=== PATIENT | male | born 2000 | race Caucasian/White ===

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

== ENCOUNTER 2021-04-19 23:17 | Emergency (ER) | payer BC ==
[~2021-04-19] VITALS: Ht 172.7 cm; Wt 70.0 kg
[2021-04-20] MEDS ORDERED: FAMOTIDINE 20MG/2ML IV (PEPCID) IVP ONE (00:15)
[2021-04-20] MEDS ORDERED: LACTATED RINGERS 1,000 ML IV ONE (00:15)
[2021-04-20] MEDS ORDERED: ONDANSETRON 4 MG/2 ML (SDV) Z0FRAN IVP ONE (00:15)
[2021-04-20] MEDS ORDERED: KETOROLAC 30 MG/ML VIAL IVP ONE (00:15)
[2021-04-20 00:40] LABS: BASOPHILS % (AUTO) 1 % (0-10); EOSINOPHILS # (AUTO) 0.1 10^3/uL (0.0-0.3); EOSINOPHILS % (AUTO) 1 % (0-10); HEMATOCRIT 37 % (40-54); HEMOGLOBIN 12.4 g/dL (13.3-17.7); LYMPHOCYTES # (AUTO) 0.8 10^3/uL (1.0-4.0); LYMPHOCYTES % (AUTO) 23 % (12-44); MEAN CORPUSCULAR HEMOGLOBIN 29 pg (25-34); MEAN CORPUSCULAR HGB CONC 33 g/dL (32-36); MEAN CORPUSCULAR VOLUME 86 fL (80-99); MEAN PLATELET VOLUME 10.8 fL (9.0-12.2); MONOCYTES # (AUTO) 0.5 10^3/uL (0.0-1.0); MONOCYTES % (AUTO) 13 % (0-12); NEUTROPHILS # (AUTO) 2.1 10^3/uL (1.8-7.8); NEUTROPHILS % (AUTO) 62 % (42-75); PLATELET COUNT 163 10^3/uL (130-400); WHITE BLOOD COUNT 3.5 10^3/uL (4.3-11.0)
--- NOTE | 2021-04-20 00:44 | ED General ---
General Chief Complaint: Cough/Cold/Flu Symptoms Stated Complaint: SHORT OF BREATH, COUGH, VOMITING Nursing Triage Note: PT TO RM 10 W C/O SOA, COUGH, N/V/D, SORE THROAT, [place], FEVER, BODY ACHES, AND CHEST TIGHTNESS. PT REPORTS HE JUST RETURNED FROM [place] 2 DAYS AGO WHERE HE WENT TO [employer]. PT STATES "THE [facility]AS[facility] C[facility] IS BECAUSE MY GIRLFRIEND NOTICED THAT I STRAIGHT UP STOPPED BREATHING WHILE LAYING IN BED ABOUT 25 MINUTES AGO." PT A&OX4. Source of Information: Patient Exam Limitations: No Limitations History of Present Illness Date Seen by Provider: Apr 19, 2021 Time Seen by Provider: 23:21 Allergies and Home Medications Allergies Coded Allergies: No Known Drug Allergies (Unverified , 04/20/21) Patient Home Medication List Home Medication List Reviewed: Yes Ondansetron (Ondansetron Odt) 4 Mg Tab.rapdis, 4 MG PO Q4H PRN for NAUSEA/VOMITING Prescribed by: RAUL ANGLIN on 04/20/21 0126 Review of Systems Review of Systems Constitutional: malaise, weakness EENTM: throat pain Respiratory: see HPI, cough, short of breath Cardiovascular: see HPI Gastrointestinal: see HPI Genitourinary: no symptoms reported Musculoskeletal: see HPI, muscle pain Skin: no symptoms reported Psychiatric/Neurological: No Symptoms Reported Hematologic/Lymphatic: No Symptoms Reported Immunological/Allergic: no symptoms reported Past Eyscyth-Umtqrz-Hjckqb Hx Patient Social History Tobacco Use?: No Use of E-Cig and/or Vaping dev: Yes E-Cig or Vaping type used: Nicotine, Marijuana Use of E-Cig and/or Vaping Alberto: Current Everyday User Substance use?: Yes Substance type: Marijuana, Other Additional substance use comme: THC & DELTA 8 USE Alcohol Use?: Yes Alcohol Frequency: Rarely Immunizations Up To Date Influenza Vaccine Up-to-Date: No; Not Current First/Initial COVID19 Vaccinat: FEBRUARY 2021 Second COVID19 Vaccination Willie: MARCH 2021 COVID19 Vaccine Tablet Repair: LATISHA Past Medical History Surgeries: Yes Adenoidectomy, Appendectomy Respiratory: No Cardiac: No Neurological: No Genitourinary: No Gastrointestinal: No Endocrine: No HEENT: No Cancer: No Psychosocial: Yes Depression Integumentary: No Physical Exam Vital Signs Vital Signs - First Documented 04/19/21 23:28 Temp 37.8 Pulse 84 Resp 26 B/P (MAP) 139/75 (96) Pulse Ox 99 O2 Delivery Room Air Capillary Refill : Less Than 3 Seconds Height, Weight, BMI Height: '" Weight: lbs. oz. kg; 23.00 BMI Method: Progress/Results/Core Measures Suspected Sepsis SIRS Temperature: Pulse: 84 Respiratory Rate: 26 Laboratory Tests 04/20/21 00:30: White Blood Count 3.5L Blood Pressure 139 /75 Mean: 96 Laboratory Tests 04/20/21 00:30: Creatinine 0.90, Platelet Count 163, Total Bilirubin 0.2 Results/Orders Lab Results Laboratory Tests Test 04/19/21 23:32 04/20/21 00:30 Range/Units Influenza Type A (RT-PCR) Detected H Not Detecte Influenza Type B (RT-PCR) Not Detected Not Detecte SARS-CoV-2 RNA (RT-PCR) Not Detected Not Detecte White Blood Count 3.5 L 4.3-11.0 10^3/uL Red Blood Count 4.31 4.30-5.52 10^6/uL Hemoglobin 12.4 L 13.3-17.7 g/dL Hematocrit 37 L 40-54 % Mean Corpuscular Volume 86 80-99 fL Mean Corpuscular Hemoglobin 29 25-34 pg Mean Corpuscular Hemoglobin Concent 33 32-36 g/dL Red Cell Distribution Width 12.3 10.0-14.5 % Platelet Count 163 130-400 10^3/uL Mean Platelet Volume 10.8 9.0-12.2 fL Immature Granulocyte % (Auto) 0 % Neutrophils (%) (Auto) 62 42-75 % Lymphocytes (%) (Auto) 23 12-44 % Monocytes (%) (Auto) 13 H 0-12 % Eosinophils (%) (Auto) 1 0-10 % Basophils (%) (Auto) 1 0-10 % Neutrophils # (Auto) 2.1 1.8-7.8 10^3/uL Lymphocytes # (Auto) 0.8 L 1.0-4.0 10^3/uL Monocytes # (Auto) 0.5 0.0-1.0 10^3/uL Eosinophils # (Auto) 0.1 0.0-0.3 10^3/uL Basophils # (Auto) 0.0 0.0-0.1 10^3/uL Immature Granulocyte # (Auto) 0.0 0.0-0.1 10^3/uL Sodium Level 139 135-145 MMOL/L Potassium Level 3.5 L 3.6-5.0 MMOL/L Chloride Level 106 98-107 MMOL/L Carbon Dioxide Level 22 21-32 MMOL/L Anion Gap 11 5-14 MMOL/L Blood Urea Nitrogen 10 7-18 MG/DL Creatinine 0.90 0.60-1.30 MG/DL Estimat Glomerular Filtration Rate 108 BUN/Creatinine Ratio 11 Glucose Level 100 70-105 MG/DL Calcium Level 8.9 8.5-10.1 MG/DL Corrected Calcium 8.9 8.5-10.1 MG/DL Magnesium Level 1.8 1.6-2.4 MG/DL Total Bilirubin 0.2 0.1-1.0 MG/DL Aspartate Amino Transf (AST/SGOT) 26 5-34 U/L Alanine Aminotransferase (ALT/SGPT) 29 0-55 U/L Alkaline Phosphatase 55 40-136 U/L Total Protein 6.9 6.4-8.2 GM/DL Albumin 4.0 3.2-4.5 GM/DL Lipase 53 8-78 U/L My Orders Orders - RAUL KENNEDY MD Covid 19 Inhouse Test (04/19/21 23:21) Influenza A And B By Pcr (04/19/21 23:21) Cbc With Automated Diff (04/20/21 00:02) Comprehensive Metabolic Panel (04/20/21 00:02) Lipase (04/20/21 00:02) Magnesium (04/20/21 00:02) Ed Iv/Invasive Line Start (04/20/21 00:02) Lactated Ringers (Lr 1000 Ml Iv Solution (04/20/21 00:15) Ondansetron Injection (Zofran Injectio (04/20/21 00:15) Famotidine Injection (Pepcid Injection) (04/20/21 00:15) Chest 1 View, Ap/Pa Only (04/20/21 00:02) Ketorolac Injection (Toradol Injection) (04/20/21 00:15) Ekg Tracing (04/20/21 00:44) Monitor-Rhythm Ecg Trace Only (12/26/21 00:44) Rx-Oseltamivir Caps (Rx-Tamiflu Caps) (04/20/21 01:12) Medications Given in ED Current Medications Medications Dose Ordered Sig/Augustus Route Start Time Stop Time Status Last Admin Dose Admin Famotidine 20 mg ONCE ONCE IVP 04/20/21 00:15 04/20/21 00:16 DC 04/20/21 00:24 20 MG Ketorolac Tromethamine 15 mg ONCE ONCE IVP 04/20/21 00:15 04/20/21 00:16 DC 04/20/21 00:24 15 MG Lactated Ringer's 1,000 ml @ 0 mls/hr Q0M ONCE IV 04/20/21 00:15 04/20/21 00:16 DC 04/20/21 00:23 0 MLS/HR Ondansetron HCl 8 mg ONCE ONCE IVP 04/20/21 00:15 04/20/21 00:16 DC 04/20/21 00:23 8 MG Vital Signs/I&O 04/19/21 04/20/21 23:28 01:27 Temp 37.8 36.8 Pulse 84 80 Resp 26 13 B/P (MAP) 139/75 (96) 121/63 Pulse Ox 99 98 O2 Delivery Room Air Room Air Capillary Refill : Less Than 3 Seconds Blood Pressure Mean: 96 ECG Initial ECG Impression Date: Apr 19, 2021 Initial ECG Impression Time: 01:13 Initial ECG Rate: 89 Initial ECG Rhythm: Normal Sinus Comment Sinus rhythm with no ischemic ST elevation or depression. Subtle ST changes are likely demonstrating early repolarization juvenile pattern. No abnormal intervals or axis deviation. Departure Impression Primary Impression: Influenza A Additional Impression: Nausea vomiting and diarrhea Disposition: 01 HOME, SELF-CARE Condition: Improved Departure-Patient Inst. Decision time for Depature: 01:23 Referrals: NO,LOCAL PHYSICIAN (PCP/Family) Primary Care Physician Patient Instructions: Flu Add. Discharge Instructions: Drink plenty of clear liquids to stay well-hydrated. Use Zofran as prescribed for nausea and vomiting. Complete the entire 10 doses of Tamiflu. Do not stop early even if you are feeling better. You may use antacid medication such as Pepcid (famotidine), omeprazole, Tums, etc. for your abdominal discomfort. You may use Tylenol (acetaminophen) up to 1000 mg every 6 hours and/or ibuprofen up to 600 mg every 6 hours as needed for pain or fever. Do not return to work, school, or other activities until you are free of fever and significant symptoms for at least 48 hours without taking medications. Work toward stopping vaping and other inhaled substances as soon as possible. Seek assistance from your primary care provider if you are having difficulty quitting. The episode described in the ER sounds like it may have been a brief apneic episode. Please talk with your primary care provider about possibly being tested for sleep apnea. Call with questions or concerns. Return to the ER if you have worsening symptoms despite following the above measures. All discharge instructions reviewed with patient and/or family. Voiced understanding. Scripts Ondansetron (Ondansetron Odt) 4 Mg Tab.rapdis 4 MG PO Q4H PRN for NAUSEA/VOMITING, #10 TAB Prov: RAUL KENNEDY MD 04/20/21 RAUL KENNEDY MD Apr 20, 2021 00:44
[2021-04-20 00:46] LABS: POTASSIUM 3.5 MMOL/L (3.6-5.0)
[2021-04-20 00:47] LABS: CALCIUM 8.9 MG/DL (8.5-10.1)
[2021-04-20 00:48] LABS: TOTAL PROTEIN 6.9 GM/DL (6.4-8.2)
[2021-04-20 00:50] LABS: BILIRUBIN,TOTAL 0.2 MG/DL (0.1-1.0)
[2021-04-20 00:52] LABS: CREATININE SERUM 0.9 MG/DL (0.60-1.30)
[2021-04-20 00:55] LABS: MAGNESIUM 1.8 MG/DL (1.6-2.4)
[2021-04-20] MEDS ORDERED: RX-OSELTAMIVIR 75 MG (TAMIFLU) BOX OF 10 PO STA (01:12)
[2021-04-20] MEDS ORDERED: ONDA4TAB11 PO (01:26)
[2021-04-20 01:27] VITALS: BP 121/63
--- NOTE | 2021-04-20 05:51 | Diagnostic Imaging Report ---
EXAMINATION: Chest 1 view HISTORY: Cough and shortness of breath COMPARISON: 02/14/2019 FINDINGS: The lungs are clear without edema or pneumonia. No pleural effusion or pneumothorax. Heart size is normal. IMPRESSION: 1. Clear lungs. Dictated by: Dictated on workstation # [id number]
== END 2021-04-20 01:32 | disposition home or self-care (01) ==
LOC: EDUNIT# 23:17 → ER 23:19
DX: J09.X2 Influenza due to identified novel influenza A virus with other respiratory manifestations (principal); F17.290 Nicotine dependence, other tobacco product, uncomplicated; Z20.822 Contact with and (suspected) exposure to COVID-19
CPT/HCPCS: 36415; 71045; 80053; 83690; 83735; 85025; 87636; 93005